=== PATIENT | female | born 2000 | race Two or more races ===

== ENCOUNTER 2023-04-01 08:52 | Outpatient (CLI) | payer OTHER, SELFPAY ==
[~2023-04-01] VITALS: Ht 157.5 cm; Wt 106.0 kg
[~2023-04-01 08:52] MED LIST: GNP28TAB2 PO
[2023-04-01 09:17] VITALS: BP 118/67; O2SAT 96
[2023-04-01] MEDS ORDERED: HOME MED LIST COMPLETE! XX SCH (09:25)
== END 2023-04-01 10:49 | disposition home or self-care (01) ==
LOC: M LDO 08:52
PROVIDERS: ATTEND Obstetrics & Gynecology
DX: O26.892 Other specified pregnancy related conditions, second trimester (principal); N93.0 Postcoital and contact bleeding; Z3A.25 25 weeks gestation of pregnancy
CPT/HCPCS: 59025; G0463